=== PATIENT | male | born 1985 | race Two or more races ===

== ENCOUNTER 2024-12-09 21:13 | Emergency (ER) | payer MEDICARE, MEDICAID, SELFPAY ==
[2024-12-09 21:14] VITALS: BMI 33.0
--- NOTE | 2024-12-09 21:30 | PC.NURSE ---
no answer in lobby when called for vital signs
--- NOTE | 2024-12-09 21:58 | PC.NURSE ---
no answer in lobby when called for vital signs
--- NOTE | 2024-12-09 22:38 | PC.NURSE ---
no answer in lobby when called for vital signs
== END 2024-12-09 22:38 | disposition left against medical advice (07) ==
LOC: SERX 22:46
PROVIDERS: Emergency Provider Emergency Medicine
DX: Z53.21 Procedure and treatment not carried out due to patient leaving prior to being seen by health care provider (principal)

== ENCOUNTER 2025-02-23 06:40 | Emergency (ER) | payer MEDICARE, MEDICAID, SELFPAY ==
[2025-02-23 06:42] VITALS: BMI 25.8
[2025-02-23 06:50] VITALS: BP 108/74; PULSE 72; RESP 18; TEMP 36.7; O2SAT 100
--- NOTE | 2025-02-23 07:21 | EDNOTE_ITS ---
<Statement entered by Bee Vides MD - 02/23/25 17:54> As co-signing physician, I was present and available for consult prn. I concur with the plan and care as documented by the midlevel provider. ED General RME/HPI General Chief complaint: Dental/Oral/Throat Stated complaint: throat pain Time Seen by Provider: 02/23/25 06:48 Arrival date/time: 02/23/25 06:40 39-year-old male with history of schizophrenia presents to the emergency department today for concerns of runny nose and sore throat. Limitations: no limitations Related Data Home Medications ?Medication ?Instructions ?Recorded ?Confirmed clonazepam 1 mg tablet (Klonopin) 1 mg PO TID 04/04/18 06/22/20 olanzapine 10 mg tablet (Zyprexa) 10 mg PO QDAY 06/22/20 buspirone 30 mg tablet 30 mg PO BID 06/07/20 propranolol 20 mg tablet 20 mg PO TID 06/07/20 fluoxetine 10 mg capsule 10 mg PO BID 06/22/20 Previous Rx's ?Medication ?Instructions ?Recorded cephalexin 500 mg capsule 500 mg PO QID #40 caps 06/07 naproxen 500 mg tablet 500 mg PO BID PRN pain #30 t abs 11/25/23 Allergies Allergy/AdvReac Type Severity Reaction Status Date / Time No Known Allergies Allergy Verified 02/23/25 06:45 Review of Systems Review of Systems Systems Reviewed: All systems reviewed, normal except as documented Constitutional Constitutional: Reports system reviewed and no additional complaints, except as documented, Denies fever(s) and Denies headache(s) Eyes Eyes: Reports system reviewed and no additional complaints, except as documented and Denies blurry vision ENT Ears, Nose, Mouth, and Throat: Reports system reviewed and no additional complaints, except as documented, Denies headache(s), Reports nasal congestion, Reports nasal discharge and Reports sore throat Cardiovascular Cardiovascular: Reports system reviewed and no additional complaints, except as documented, Denies chest pain and Denies dyspnea Respiratory Respiratory: Reports system reviewed and no additional complaints, except as documented, Denies chest congestion, Denies cough and Denies dyspnea Gastrointestinal Gastrointestinal: Reports system reviewed and no additional complaints, except as documented and Denies abdominal pain Integumentary/Breasts Skin/Breast: Reports system reviewed and no additional complaints, except as documented and Denies rash Neurologic Neurologic: Reports system reviewed and no additional complaints, except as documented, Reports as per HPI and Denies headache(s) Past Medical History Past Medical History NEUROLOGIC: Negative Neurological Disorders CARDIAC: Positive Hypertension; Negative Cardiac Disorders or Congestive Heart Failure RESPIRATORY: Positive Asthma; Negative Chronic Obstructive Pulmonary Disease (COPD) GENITOURINARY: Negative Renal Disease ENDOCRINE: Negative Diabetes Mellitus Type 1 or Diabetes Mellitus Type 2 HEMATOLOGIC: Negative Sickle Cell Disease PSYCHO/SOCIAL: Positive Depression and Anxiety Social History SMOKING STATUS: Never smoker ED Exam General Limitations: Present no limitations General appearance: Present alert and in no apparent distress Head Head exam: Present atraumatic, normocephalic and normal inspection Eye Eye exam: Present normal appearance, PERRL and EOMI; Absent conjunctival injection ENT ENT exam: Present normal exam, normal oropharynx and mucous membranes moist Neck Neck exam: Present normal inspection, full ROM and trachea midline Chest Chest inspection: Present normal inspection and symmetric chest wall rise Respiratory Respiratory exam: Present normal lung sounds bilaterally; Absent respiratory d istress, wheezes, stridor or accessory muscle use Cardiovascular Cardiovascular exam: Present regular rate, normal rhythm and normal heart sounds Abdominal Exam Abdominal exam: Present soft and normal bowel sounds; Absent distention, tenderness, guarding, rebound or rigidity Extremities Exam Extremities exam: Present normal inspection and full ROM Back Exam Back exam: Present normal inspection and full ROM Neurological Exam Neurological exam: Present alert, oriented X3 and CN II-XII intact Psychiatric Psychiatric exam: Present normal affect and normal mood Skin Skin exam: Present warm, dry, intact and normal color Course Quality Measures none Orders Category Date Time Status Bedside Influenza A&B Antigen Test NOW Care 02/23/25 07:04 Completed Strep A Rapid Stat Lab 02/23/25 07:10 Completed Ondansetron Odt [Zofran Odt] Med 02/23/25 07:03 Discontinued 4 mg PO X1 ONE dexAMETHasone TAB [Decadron Tab] Med 02/23/25 07:03 Discontinued 10 mg PO X1 ONE Vital Signs Vital signs: Vital Signs Temperature 98.1 F 02/23/25 06:50 Pulse Rate 72 02/23/25 06:50 Respiratory Rate 18 02/23/25 06:50 Blood Pressure 108/74 02/23/25 06:50 Pulse Oximetry (%) 100 02/23/25 06:50 Oxygen Delivery Method Room Air 02/23/25 06:50 O2 saturation 100% room air within normal limits MDM Patient data External records reviewed:: [facility] previous records Clinical information provided by:: patient Social determinants that could affect healthcare access:: mental health Patient has the following chronic illnesses:: Mental health How is presenting disease/condition affected by chronic disease/condition?: exacerbated by Evaluation data The following diagnostics were reviewed and interpreted by me:: lab results Lab and/or radiology exams considered but not ordered:: Labs obtained Interpretation Summary: Reviewed by me Medications Medications considered but not ordered:: Ordered Medication administrations:: Medication Administration History Discontinued Medications Dexamethasone (Dexamethasone 4 Mg Tablet) 10 mg PO X1 ONE Stop: 02/23/25 07:04 Last Admin: 02/23/25 07:22 Dose: Not Given Documented By: DB Non-Admin Reason: Not In Room Ondansetron HCl (Ondansetron Odt 4 Mg Tabrap) 4 mg PO X1 ONE; Protocol Stop: 02/23/25 07:04 Last Admin: 02/23/25 07:22 Dose: Not Given Documented By: DB Non-Admin Reason: Not In Room Ordered Consultations Consultation(s) initiated? (list below): No Diagnosis Differential Diagnosis ED Complaint MDM: Schizophrenia, viral illness, influenza, COVID-19, pneumonia, strep throat Most likely diagnosis given after review of the tests above:: Viral illness Admission Indicated Admission indicated?: not indicated Explain why admission is indicated or not indicated:: No criteria Admission Request Was there a request for admission?: No Disposition Plan Disposition Plan: Discharge Discharge Attestation Discharge Attestation: The patient and all family members were given an opportunity to ask questions and understood the discharge instructions. Discharge instructions specifically effects, indications for sooner follow up or return to the emergency department, and the expected course of current diagnosis. Patient condition: Stable Medical Decision Making MDM Narrative MDM Narrative: 39-year-old male with history of schizophrenia presents to the emergency department today for concerns of runny nose and sore throat. On exam patient well-appearing does not appear ill or toxic no difficulty breathing no difficulty swallowing Ordered flu and strep as well as medication Per nursing staff patient eloped from the emergency department Differential Diagnosis Differential Diagnosis: Schizophrenia, viral illness, influenza, COVID-19, pneumonia, strep throat Medical Records Medical records reviewed: Yes I reviewed the patient's medical records. Lab Data Lab results reviewed: Yes I reviewed the patient's lab results. Labs: Lab Results 02/23/25 Range/Units 07:10 Group A Strep Rapid Negative (Negative) Discharge Plan Plan Patient Disposition: Elopement Disposition Comment: stable Prescriptions/Referrals Prescriptions/Med Rec: No Action fluoxetine 10 mg capsule 10 mg PO BID Rx Instructions: administer in the morning and at noon/midday clonazepam [Klonopin] 1 mg Tablet 1 mg PO TID olanzapine [Zyprexa] 10 mg Tablet 10 mg PO QDAY buspirone 30 mg Tablet 30 mg PO BID propranolol 20 mg Tablet 20 mg PO TID cephalexin 500 mg capsule 500 mg PO QID Qty: 40 0RF naproxen 500 mg tablet 500 mg PO BID PRN (Reason: pain) Qty: 30 0RF Problem List Clinical Impression: Viral illness, Nasal congestion Patient/Caregiver Discharge Instructions Print Language: Greek
[2025-02-23 07:34] LABS: Strep A Rapid Negative (Negative)
== END 2025-02-23 07:25 | disposition left against medical advice (07) ==
LOC: SERX 07:29
PROVIDERS: Nurse Practitioner Primary Care; Emergency Provider Emergency Medicine
DX: B34.9 Viral infection, unspecified (principal); R09.81 Nasal congestion
CPT/HCPCS: 87400; 87651; 99281

== ENCOUNTER 2025-06-08 17:54 | Emergency (ER) | payer MEDICARE, MEDICAID, SELFPAY ==
[2025-06-08 18:10] VITALS: BP 113/74; PULSE 105; RESP 20; TEMP 38.1; O2SAT 96
[2025-06-08 19:16] VITALS: BMI 33.0
--- NOTE | 2025-06-08 19:25 | XR_ITS ---
Examination: CT brain head without contrast. 2-D sagittal coronal reconstructions Date and time of exam:June 08, 2025 1934 hours Comparison February 05, 2024 INDICATIONS: Onset headaches dizziness today CTDI: vol (mGy):57.2 DLP: (mGycm):1183 Technique: Multiple CT axial sections of the brain have been obtained, 5 mm slice thickness. Contrast has not been administered. 2-D sagittal, coronal reconstructions have been obtained Low dose protocols were performed. One or more of the following dose reduction techniques were used; automated exposure control, adjustment of the mA and/or KV according to patient size, use of iterative reconstruction technique. Findings: No significant ventricular enlargement. Intra-axial or extra-axial hemorrhage density is not seen. No mass effect or midline shift Basal cisterns are not remarkable. Fourth ventricle is midline. Cranial vault intact. Acute right maxillary sinusitis Impression: Negative for acute hemorrhage, mass effect or midline shift Advise clinical correlation and follow up accordingly
[2025-06-08 19:55] LABS: Basophils # (Auto) 0.1 Thou/mm3 (0.0-0.2); Basophils % (Auto) 1 % (0-2.5); Eosinophils # (Auto) 0.1 Thou/mm3 (0.0-0.5); Eosinophils % (Auto) 2 % (0-10); Hematocrit 45.1 % (41.0-53.0); Hemoglobin 15.6 g/dL (13.5-16.0); Immature Granulocytes Auto 0.01 Thou/mm3 (0.00-0.00); Lymphocytes # (Auto) 1.4 Thou/mm3 (1.0-4.8); Lymphocytes % (Auto) 21 % (10-50); Mean Corpuscular HGB Conc 34.6 g/dl (31.0-37.0); Mean Corpuscular Hemoglobin 30.8 pg (25.0-35.0); Mean Corpuscular Volume 89 fL (80-100); Monocytes # (Auto) 0.6 Thou/mm3 (0.0-0.8); Monocytes % (Auto) 8 % (0-12); Neutrophils # (Auto) 4.5 Thou/mm3 (1.8-7.7); Neutrophils % (Auto) 68 % (37-80); Nucleated Red Blood Cell # 0.00 Thou/mm3 (0.00-0.00); Nucleated Red Blood Cell % 0 /100 WBC (0); Platelet Count 176 Thou/mm3 (140-440); RDW Standard Deviation 44.1 fL (35.1-43.9); Red Blood Count 5.06 Miln/mm3 (4.50-5.90); White Blood Count 6.6 Thou/mm3 (3.8-10.6)
--- NOTE | 2025-06-08 20:24 | PD.EDHA ---
ED Headache RME/HPI General Chief Complaint: Headache Stated Complaint: MAYO X 2 days Time Seen by Provider: 06/08/25 18:31 Arrival date/time: 06/08/25 17:54 This is a case of 40-year-old male with no medical history came in in the emergency room due to frontal headache after drinking soda associated with nausea vomiting denies any head injury denies any numbness weakness tingling sensation and denies any blurring of vision denies dizziness Limitations: no limitations Related Data Home Medications ?Medication ?Instructions ?Recorded ?Confirmed clonazepam 1 mg tablet (Klonopin) 1 mg PO TID 04/04/18 06/22/20 olanzapine 10 mg tablet (Zyprexa) 10 mg PO QDAY 04/04/18 06/22/20 buspirone 30 mg tablet 30 mg PO BID 06/07/20 06/22/20 propranolol 20 mg tablet 20 mg PO TID 06/07/20 06/22/20 fluoxetine 10 mg capsule 10 mg PO BID 06/22/20 06/22/20 Previous Rx's ?Medication ?Instructions ?Recorded cephalexin 500 mg capsule 500 mg PO QID #40 caps 06/07/20 naproxen 500 mg tablet 500 mg PO BID PRN pain #30 tabs 11/25/23 ondansetron 4 mg disintegrating 4 mg PO Q8H PRN nausea and 06/08/25 tablet vomiting #20 tabs ondansetron 4 mg disintegrating 4 mg PO Q8H PRN nausea and 06/08/25 tablet vomiting #20 tabs Allergies Allergy/AdvReac Type Severity Reaction Status Date / Time No Known Allergies Allergy Verified 06/08/25 17:57 Review of Systems Review of Systems Systems Reviewed: All systems reviewed, normal except as documented Constitutional Constitutional: Reports system reviewed and no additional complaints, except as documented, Denies anorexia, Denies chills, Denies fatigue, Denies fever(s), Denies frequent falls, Reports headache(s) and Denies weakness Eyes Eyes: Reports system reviewed and no additional complaints, except as documented, Reports as per HPI, Denies blurry vision, Denies change in vision, Denies diplopia and Denies loss of vision ENT Ears, Nose, Mouth, and Throat: Denies abnormal hearing, Denies disequilibrium, Denies dizziness, Reports headache(s) and Denies vertigo Cardiovascular Cardiovascular: Reports system reviewed and no additional complaints, except as documented, Reports as per HPI, Denies chest pain, Denies dyspnea and Denies syncope Respiratory Respiratory: Reports system reviewed and no additional complaints, except as documented, Reports as per HPI, Denies cough and Denies dyspnea Gastrointestinal Gastrointestinal: Reports system reviewed and no additional complaints, except as documented, Reports as per HPI, Denies abdominal pain, Reports nausea and Reports vomiting Musculoskeletal Musculoskeletal: Reports system reviewed and no additional complaints, except as documented, Reports as per HPI, Denies abnormal gait, Denies numbness and Denies tingling Neurologic Neurologic: Reports system reviewed and no additional complaints, except as documented, Reports as per HPI, Denies abnormal gait, Denies abnormal hearing, Denies abnormal movements, Denies abnormal speech, Denies behavioral changes, Denies burning sensations, Denies confusion, Denies convulsions, Denies disequilibrium, Denies dizziness, Denies localized weakness, Denies frequent falls, Reports headache(s), Denies lack of coordination, Denies loss of vision, Denies memory loss, Denies numbness, Denies other visual disturbances, Denies paresthesias, Denies radicular pain, Denies restless legs, Denies seizure-like activity, Denies sensory deficit, Denies syncope, Denies tingling, Denies tremor(s), Denies vertigo and Denies weakness Psychiatric Psychiatric: Denies behavioral changes, Denies confusion and Denies memory loss Endocrine Endocrine: Denies fatigue Past Medical History Past Medical History NEUROLOGIC: Negative Neurological Disorders CARDIAC: Positive Hypertension; Negative Cardiac Disorders or Congestive Heart Failure RESPIRATORY: Positive Asthma; Negative Chronic Obstructive Pulmonary Disease (COPD) GENITOURINARY: Negative Renal Disease ENDOCRINE: Negative Diabetes Mellitus Type 1 or Diabetes Mellitus Type 2 HEMATOLOGIC: Negative Sickle Cell Disease PSYCHO/SOCIAL: Positive Depression and Anxiety Social History SMOKING STATUS: Never smoker ED Exam General Limitations: Present no limitations General appearance: Present alert, in no apparent distress and other (Patient is awake alert oriented not in distress nontoxic looking well-hydrated well-nourished) Head Head exam: Present atraumatic, normocephalic and normal inspection Eye Eye exam: Present normal appearance, PERRL, EOMI and other (no pappiledema) ENT ENT exam: Present normal exam, normal oropharynx, mucous membranes moist and other (Normal HEENT exam) Neck Neck exam: Present normal inspection, full ROM, trachea midline and other (Negative meningeal sign); Absent tenderness, meningismus, lymphadenopathy or thyromegaly Chest Chest inspection: Present normal inspection and symmetric chest wall rise Respiratory Respiratory exam: Present normal lung sounds bilaterally; Absent respiratory distress, wheezes, stridor, accessory muscle use or prolonged expiratory phase Cardiovascular Cardiovascular exam: Present regular rate, normal rhythm and normal heart sounds; Absent bradycardia, tachycardia, irregular rhythm, systolic murmur or diastolic murmur Abdominal Exam Abdominal exam: Present soft and normal bowel sounds; Absent distention, tenderness, guarding, rebound, rigidity, diminished bowel sounds, hyperactive bowel sounds or hypoactive bowel sounds Extremities Exam Extremities exam: Present normal inspection and full ROM Back Exam Back exam: Present normal inspection and full ROM Neurological Exam Neurological exam: Present alert, oriented X3, CN II-XII intact, normal gait, reflexes normal and other (Awake alert oriented x 4 no focal deficit GCS 15/15 steady gait memory intact no focal slurring speech no facial droop CN II through XII is normal motor 5/5 in all extremities sensory +2 in all extremities reflex +2 in all extremities negative Babinski steady gait); Absent motor sensory deficit Psychiatric Psychiatric exam: Present normal affect and normal mood Skin Skin exam: Present warm, dry, intact and normal color Course Quality Measures none Orders Category Date Time Status CT head/brain wo con Stat Exams 06/08/25 19:25 Completed CBC Stat Lab 06/08/25 19:32 Completed CMP [Comprehensive Metabolic Panel] Stat Lab 06/08/25 19:32 Completed Ondansetron Odt [Zofran Odt] Med 06/08/25 20:40 Discontinued 4 mg PO X1 ONE Vital Signs Vital signs: Vital Signs Temperature 100.5 F H 06/08/25 18:10 Pulse Rate 105 H 06/08/25 18:10 Respiratory Rate 20 06/08/25 18:10 Blood Pressure 113/74 06/08/25 18:10 Pulse Oximetry (%) 96 06/08/25 18:10 Oxygen Delivery Method Room Air 06/08/25 18:10 Oxygen saturation 96% in room air Headache MDM Narrative MDM Narrative:: This is a case of 40-year-old male with no medical history came in in the emergency room due to frontal headache after drinking soda associated with nausea vomiting denies any head injury denies any numbness weakness tingling sensation and denies any blurring of vision denies dizziness patient is awake alert oriented not in distress nontoxic looking well-hydrated well-nourished neurological exam Awake alert oriented x 4 no focal deficit GCS 15/15 steady gait memory intact no focal slurring speech no facial droop CN II through XII is normal motor 5/5 in all extremities sensory +2 in all extremities reflex +2 in all extremities negative Babinski steady gait the rest of the physical exam and neurological exam is normal and unremarkable blood test showed no leukocytosis no anemia kidney liver function is normal no electrolyte imbalance CT scan showed unremarkable no intracranial bleeding patient was given John Day and Zofran which patient condition markedly improved and resolved impression migraine headache vs tension headache patient was advised to follow-up with PCP in 2 days for evaluation and to be referred to neurologist for headache for any recurrence persistent worsening symptoms he will return in the emergency room immediately or call 911 patient was prescribed with Motrin for pain and Zofran for nausea vomiting patient agreed with the treatment plan and discharge Patient was discharged with comfortable condition walking with stable gait. Patient verbalized no further complains explained diagnosis and answered patient question. Patient is comfortable with the proposed management plan including the need to follow up with his/her primary care physician and any specialist if applicable Discussed patient for any urgent condition or worsening sx, He/She needed to go to emergency room immediately or call 911. Patient acknowledge the responsibility to follow up as instructed and to monitor her/his symptoms. For any persistence of the symptoms for more than 3-5 days return precaution advised. Discussed the result of the test and was given printed discharge instruction Patient data External records reviewed:: [facility] previous records Clinical information provided by:: patient Social determinants that could affect healthcare access:: none Patient has the following chronic illnesses:: None How is presenting disease/condition affected by chronic disease/condition?: no chronic disease Evaluation data The following diagnostics were reviewed and interpreted by me:: lab results and radiology exam(s) Lab and/or radiology exams considered but not ordered:: Reviewed Interpretation Summary: Reviewed Medications / Prescriptions Medications or Prescriptions considered but not ordered:: Given Medication administrations:: Medication Administration History Discontinued Medications Ondansetron HCl (Ondansetron Odt 4 Mg Tabrap) 4 mg PO X1 ONE; Protocol Stop: 06/08/25 20:41 Given Consultations Consultation(s) initiated? (list below): No Diagnosis Differential diagnosis headache: migraine, tension headache, subarachnoid hemorrhage, headache, meningitis and sinusitis Most likely diagnosis given after review of the tests above:: Headache Admission Indicated Admission indicated?: not indicated Explain why admission is indicated or not indicated:: Not indicated Admission Request Was there a request for admission?: No Admission Attestation Admission request attestation: Not indicated Disposition Plan Disposition Plan: Discharge Discharge Attestation Discharge Attestation: The patient and all family members were given an opportunity to ask questions and understood the discharge instructions. Discharge instructions specifically effects, indications for sooner follow up or return to the emergency department, and the expected course of current diagnosis. Patient condition: Stable Discharge Plan Plan Patient Disposition: HOME (Self Care) Patient condition on transfer: Stable Prescriptions/Referrals Prescriptions/Med Rec: New ondansetron 4 mg tablet,disintegrating 4 mg PO Q8H PRN (Reason: nausea and vomiting) Qty: 20 0RF ondansetron 4 mg tablet,disintegrating 4 mg PO Q8H PRN (Reason: nausea and vomiting) Qty: 20 0RF No Action fluoxetine 10 mg capsule 10 mg PO BID Rx Instructions: administer in the morning and at noon/midday clonazepam [Klonopin] 1 mg Tablet 1 mg PO TID olanzapine [Zyprexa] 10 mg Tablet 10 mg PO QDAY buspirone 30 mg Tablet 30 mg PO BID propranolol 20 mg Tablet 20 mg PO TID cephalexin 500 mg capsule 500 mg PO QID Qty: 40 0RF naproxen 500 mg tablet 500 mg PO BID PRN (Reason: pain) Qty: 30 0RF Referrals: No Primary/Family,Physician [Primary Care Provider] - In 1 week Problem List Clinical Impression: Headache Patient/Caregiver Discharge Instructions Education Materials: Self-Care for Headaches Additional Instructions: Follow-up with your primary care physician in 2 days for reevaluation and to be referred to neurologist for further evaluation and treatment of your headache recurrence persistent worsening symptoms or any emergent concern call 911 or go to the nearest emergency room take your medication as directed keep hydrated Print Language: Lao Stand Alone Forms: Yessi Award Info., Patient Portal Info Letter ELENA/VIN Supervising Physician ELENA/VIN Supervising Physician: Dr ibarra
[2025-06-08 20:33] LABS: Alanine Aminotransferase 10 U/L (10-49); Albumin, Serum 4.1 gm/dL (3.5-5.0); Albumin/Globulin Ratio 1.4 (1.2-2.2); Alkaline Phosphatase 92 U/L (46-116); Anion Gap 8 (7-16); Aspartate Amino Transferase 18 U/L (0-34); BUN/Creatinine Ratio 5 Ratio (12-20); Bilirubin,Total 0.8 mg/dL (0.3-1.2); Blood Urea Nitrogen 5 mg/dL (9-23); Calcium 8.6 mg/dL (8.3-10.6); Calcium (Corrected) 8.6 mg/dL (8.5-10.1); Carbon Dioxide 26.7 mMol/L (20.0-31.0); Chloride 107 mMol/L (98-107); Creatinine (Component) 1.1 mg/dL (0.6-1.3); Estimated Creatinine Clearance 94.3 mL/min (>60); Globulin 2.9 gm/dL (2.3-3.5); Glucose 92 mg/dL (74-106); Osmolality,Calculated 280 (275-295); Potassium 3.8 mMol/L (3.4-5.1); Sodium 142 mMol/L (136-145); Total Protein 7.0 gm/dL (5.7-8.2); eGFR > 60 See Note
[2025-06-08 20:50] VITALS: BP 199/64; PULSE 95; RESP 18; TEMP 36.7; O2SAT 96
[2025-06-08] MEDS: ONDANSETRON ODT 4 MG TABRAP PO (20:54)
[2025-06-08 20:57] VITALS: BP 164/74
== END 2025-06-08 20:57 | disposition home or self-care (01) ==
PROVIDERS: Nurse Practitioner Family; Emergency Provider Emergency Medicine
DX: R51.9 Headache, unspecified (principal)
CPT/HCPCS: 36415; 70450; 80053; 85025; 99283; Q0162